=== PATIENT | female | born 2000 | race Two or more races ===

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

== ENCOUNTER 2021-08-26 09:01 | Emergency (ER) | payer OTHER ==
[~2021-08-26] VITALS: Ht 167.6 cm; Wt 74.8 kg
== END 2021-08-26 12:15 | disposition home or self-care (01) ==
LOC: ER 09:01 → EMR PED 09:03
DX: R53.81 Other malaise (principal); R05.9 Cough, unspecified; Z20.822 Contact with and (suspected) exposure to COVID-19; M41.84 Other forms of scoliosis, thoracic region

== ENCOUNTER 2021-12-23 14:34 | Emergency (ER) | payer OTHER ==
[~2021-12-23] VITALS: Ht 167.6 cm; Wt 72.6 kg
== END 2021-12-23 19:09 | disposition home or self-care (01) ==
LOC: EMR PED 14:34
DX: M94.0 Chondrocostal junction syndrome [Tietze] (principal)

== ENCOUNTER → 2022-12-31 | Emergency (ER) | payer OTHER ==
[~2022-12-31] VITALS: Ht 167.6 cm; Wt 73.5 kg
[~2022-12-31] MED LIST: AMOX-CLAV 875-1 EAC1 PO
[2022-12-31 17:57] LABS: HEMATOCRIT 41.1 % (36.0-45.00); HEMOGLOBIN 14.2 g/dL (12.0-15.00); MEAN CELL VOLUME 83.5 fL (80.00-100.00); MEAN CORPUSCULAR HEMOGLOBIN 28.8 pg (27.00-32.0); MEAN CORPUSCULAR HGB CONC 34.5 g/dl (32.0-36.0); PLATELET COUNT 294 K/uL (150-450); RED BLOOD COUNT 4.92 M/uL (4.00-6.00); RED CELL DISTRIBUTION WIDTH 13.6 % (11.5-14.5)
== END | disposition home or self-care (01) ==
LOC: ER 16:20
PROVIDERS: General Practice
DX: J06.9 Acute upper respiratory infection, unspecified (principal); Z20.822 Contact with and (suspected) exposure to COVID-19

== ENCOUNTER 2024-04-29 13:31 | Emergency (ER) | payer OTHER ==
[~2024-04-29] VITALS: Ht 165.1 cm; Wt 72.1 kg
[2024-04-29 15:33] LABS: HEMATOCRIT 41.8 % (36.0-45.00); HEMOGLOBIN 13.9 g/dL (12.0-15.00); MEAN CELL VOLUME 84.6 fL (80.00-100.00); MEAN CORPUSCULAR HEMOGLOBIN 28.1 pg (27.00-32.0); MEAN CORPUSCULAR HGB CONC 33.3 g/dl (32.0-36.0); PLATELET COUNT 294 K/uL (150-450); RED BLOOD COUNT 4.94 M/uL (4.00-6.00)
[2024-04-29 16:15] LABS: URINE APPEARANCE Clear; URINE BILIRRUBIN Negative (NEGATIVE); URINE BLOOD Negative; URINE COLOR Yellow; URINE GLUCOSE Negative (NEGATIVE); URINE KETONE Negative (NEGATIVE); URINE LEUKOCYTE Negative; URINE NITRATE Negative; URINE PROTEIN Negative (NEGATIVE); URINE UROBILINOGEN 0.2 E.U./dl
[2024-04-29 16:19] LABS: URINE BACTERIA 143.1 uL (0.0-1933); URINE EPITHELIAL CELLS 4.7 uL (0.0-38.8); URINE WBC 1.8 uL (0.0-23.2)
[2024-04-29 16:25] LABS: URINE RBC 0.1 uL (0.0-20.8)
== END 2024-04-29 17:52 | disposition home or self-care (01) ==
LOC: ER 13:34
DX: B37.9 Candidiasis, unspecified (principal)

== ENCOUNTER 2024-07-11 06:00 | Emergency (ER) | payer OTHER ==
[~2024-07-11] VITALS: Ht 165.1 cm; Wt 74.8 kg
[2024-07-11] MEDS ORDERED: PROMETHAZINE HCL 50 MG/ML AMPUL IM STA (07:21)
[2024-07-11] MEDS ORDERED: FAMOTIDINE/PF 20 MG/2 ML VIAL IV PUSH STA (07:21)
[2024-07-11] MEDS ORDERED: HYOSCYAMINE SULFATE 0.125 MG TAB.SUBL SL STA (07:21)
[2024-07-11] MEDS ORDERED: LACTOBACILLUS ACIDOPHILUS 1 CAP CAP PO STA (07:22)
[2024-07-11] MEDS ORDERED: DEXTROSE 5 % AND 0.9 % NACL 1,000 ML IV ONE (07:30)
[2024-07-11] MEDS ORDERED: PROMETHAZINE HCL 50 MG/ML AMPUL IM ONE (07:40)
[2024-07-11] MEDS ORDERED: HYOSCYAMINE SULFATE 0.125 MG TAB.SUBL ONE (07:41)
[2024-07-11] MEDS ORDERED: LACTOBACILLUS ACIDOPHILUS 1 CAP CAP PO ONE (07:42)
[2024-07-11] MEDS ORDERED: FAMOTIDINE/PF 20 MG/2 ML VIAL ONE (07:42)
[2024-07-11 08:22] LABS: HEMATOCRIT 40.2 % (36.0-45.00); HEMOGLOBIN 13.9 g/dL (12.0-15.00); MEAN CELL VOLUME 82.3 fL (80.00-100.00); MEAN CORPUSCULAR HEMOGLOBIN 28.5 pg (27.00-32.0); MEAN CORPUSCULAR HGB CONC 34.6 g/dl (32.0-36.0); PLATELET COUNT 284 K/uL (150-450); RED BLOOD COUNT 4.88 M/uL (4.00-6.00); RED CELL DISTRIBUTION WIDTH 14.3 % (11.5-14.5)
[2024-07-11 09:08] LABS: URINE APPEARANCE Clear; URINE BILIRRUBIN Negative (NEGATIVE); URINE BLOOD Large; URINE COLOR Yellow; URINE GLUCOSE Negative (NEGATIVE); URINE KETONE Trace (NEGATIVE); URINE LEUKOCYTE Negative; URINE NITRATE Negative; URINE PROTEIN Negative (NEGATIVE); URINE UROBILINOGEN 0.2 E.U./dl
[2024-07-11 09:10] LABS: CALCIUM 9.3 mg/dL (8.5-10.1); CREATININE SERUM 0.97 mg/dL (0.55-1.02); GFR 71.17; POTASSIUM 4.62 mEq/L (3.5-5.1)
[2024-07-11 09:12] LABS: URINE BACTERIA 75.8 uL (0.0-1933); URINE EPITHELIAL CELLS 5.2 uL (0.0-38.8); URINE WBC 7.4 uL (0.0-23.2)
== END 2024-07-11 14:24 | disposition home or self-care (01) ==
LOC: ER 06:38
PROVIDERS: General Practice
DX: K52.89 Other specified noninfective gastroenteritis and colitis (principal); R11.10 Vomiting, unspecified; E11.9 Type 2 diabetes mellitus without complications

== ENCOUNTER 2024-12-28 17:29 | Emergency (ER) | payer OTHER ==
[~2024-12-28] VITALS: Ht 165.1 cm; Wt 77.1 kg
[2024-12-28 20:11] LABS: BASO % 0.5 % (0.1-1.2); EOS # 0.14 (0.04-0.54); EOS % 1.9 % (0.7-7.0); LYMPH # 1.75 (1.18-3.74); LYMPH % 23.8 % (19.3-53.1); MEAN PLATELET VOLUME 9.70 fl (9.4-12.4); MONO # 0.81 (0.24-0.82); MONO % 11.0 % (4.7-12.5); NEUT # 4.60 (1.56-6.13); NEUT % 62.5 % (34.0-71.1); RED CELL DISTRIBUTION WIDTH 13.0 % (11.6-14.4)
[2024-12-28 20:46] LABS: ALT/SGPT 27.0 U/L (12-78); AST/SGOT 19.0 U/L (15-37); BILIRUBIN TOTAL 0.24 mg/dL (0.3-1.2); BUN CREA RATIO 12.0 (7.0-25.0); CREATININE SERUM 1.08 mg/dL (0.55-1.02); GFR 62.87; GLOBULINA 4.0 G/DL (2.4-3.5); GLUCOSE FASTING 89.0 mg/dL (65-100); OSMOLALITY SERUM 279.0 MOSM/KG (275-295)
[2024-12-28 21:20] LABS: COVID-19 AG NEGATIVE (NEGATIVE)
[2024-12-28] MEDS ORDERED: TRAMADOL HCL 50 MG TABLET PO STA (21:38)
== END 2024-12-28 22:16 | disposition home or self-care (01) ==
LOC: ER 17:29
PROVIDERS: General Practice
DX: R79.82 Elevated C-reactive protein (CRP) (principal); R53.81 Other malaise; Z20.822 Contact with and (suspected) exposure to COVID-19